=== PATIENT | female | born 1965 | race African-American/Black ===

== ENCOUNTER 2023-03-03 14:28 | Emergency (ER) | payer OTHER ==
[2023-03-03] MEDS ORDERED: IBUPROFEN 800 MG TAB PO STA (15:43)
[2023-03-03] MEDS ORDERED: ACETAMINOPHEN TAB 500 MG TAB PO STA (15:43)
--- NOTE | 2023-03-03 15:46 | ED ---
Extremity Problem HPI - General Chief complaint: Extremity Injury, Upper Stated complaint: xray shoulder Time Seen by Provider: 03/03/23 15:18 Source: patient, RN notes reviewed, old records reviewed Mode of arrival: ambulatory Limitations: no limitations - History of Present Illness Initial comments: This is a 57-year-old female patient presents today for evaluation of left shoulder pain. Patient presents for cigarette of her left shoulder pain. Patient is 9-10 days out of left shoulder injury and today her to popping sound in her left shoulder joint. No other acute complaints full range of motion of shoulder no pain in the elbow or hand. Injury was traumatic is patient was dropped will getting picked up around again 10 days ago prior to admission to [facility]. No medical history takes no medications MD Complaint: extremity pain, extremity swelling, joint swelling, joint pain -: hour(s) (9) Location: left, upper extremity -: Yes arthralgia Radiation: proximal Severity scale (1-10): 4 Quality: stabbing Improves with: nothing Worsens with: nothing Associated Symptoms: denies other symptoms - Related Data Allergies Allergy/AdvReac Type Severity Reaction Status Date / Time amoxicillin Allergy Unknown Verified 03/03/23 14:57 metronidazole [From Flagyl] Allergy Unknown Verified 03/03/23 14:57 Review of Systems ROS Statement: Those systems with pertinent positive or pertinent negative responses have been documented in the HPI. ROS Other: All systems not noted in ROS Statement are negative. Past Medical History Past Medical History: No Reported History, Asthma, GERD/Reflux, Hypertension Additional Past Medical History / Comment(s): bone degeneration dx. History of Any Multi-Drug Resistant Organisms: None Reported Past Surgical History: Section, Orthopedic Surgery Past Psychological History: No Psychological Hx Reported Smoking Status: Current every day smoker Past Alcohol Use History: Heavy Past Drug Use History: None Reported General Exam Limitations: no limitations General appearance: alert, in no apparent distress Head exam: Present: atraumatic, normocephalic, normal inspection Eye exam: Present: normal appearance, PERRL, EOMI. Absent: scleral icterus, conjunctival injection, periorbital swelling ENT exam: Present: normal exam, mucous membranes moist Neck exam: Present: normal inspection. Absent: tenderness, meningismus, lymphadenopathy Respiratory exam: Present: normal lung sounds bilaterally. Absent: respiratory distress, wheezes, rales, rhonchi, stridor Cardiovascular Exam: Present: regular rate, normal rhythm, normal heart sounds. Absent: systolic murmur, diastolic murmur, rubs, gallop, clicks GI/Abdominal exam: Present: soft, normal bowel sounds. Absent: distended, tenderness, guarding, rebound, rigid Extremities exam: Present: normal inspection, normal capillary refill. Absent: full ROM (Does have pain with range of motion of left shoulder but is able to shoulder all range), tenderness, pedal edema, joint swelling, calf tenderness Back exam: Present: normal inspection Neurological exam: Present: alert, oriented X3, CN II-XII intact Psychiatric exam: Present: normal affect, normal mood Skin exam: Present: warm, dry, intact, normal color. Absent: rash Course Vital Signs 03/03/23 03/03/23 14:53 17:02 Temperature 98.1 F 97.6 F Pulse Rate 73 75 Respiratory 20 18 Rate Blood Pressure 141/82 132/83 O2 Sat by Pulse 97 97 Oximetry - Reevaluation(s) Reevaluation #1: 03/03/23 16:49 Medical record is reviewed Reevaluation #2: 03/03/23 16:49 Patient informed results questions answered Reevaluation #3: 03/03/23 16:50 Patient has no significant symptoms currently has full range of motion of left shoulder Reevaluation #4: 03/03/23 16:52 Was pt. sent in by a medical professional or institution? @ -no Did you speak to anyone other than the patient for history? @ -no Did you review nursing and triage notes? @ -agree Were old charts reviewed? @ -no Differential Diagnosis? @ -prior EKG interpreted by me (3pts min.)? @ -no X-rays interpreted by me (1pt min.)? @ -yes CT interpreted by me (1pt min.)? @ -no U/S interpreted by me (1pt. min.)? @ -no What testing was considered but not performed? (CT, X-rays, U/S, labs)? Why? @ -no What meds were considered but not given? Why? @ -no Did you discuss the management of the patient with other professionals? @ -no Did you reconcile home meds? @ -no Was smoking cessation discussed for >3mins.? @ -no Was critical care preformed (if so, how long)? @ -no Were there social determinants of health that impacted care today? How? (Homelessness, low income, unemployed, alcoholism, drug addiction, transportation, low edu. Level, literacy, decrease access to med. care, residential, rehab)? @ -no Was there de-escalation of care discussed even if they declined? (Discuss DNR or withdrawal of care, Hospice)? @ -no What co-morbidities impacted this encounter? (DM, HTN, Smoking, COPD, CAD, Cancer, CVA, Hep., AIDS, mental health diagnosis, sleep apnea, morbid obesity)? @ -none Was patient admitted / discharged? @ -57 female DF for left shoulder pain strain for about a week no improving symptoms, worse when she moves it. No acute findings here in the ER patient can be discharged home Discharge Undiagnosed new problem with uncertain prognosis? @ -no Drug Therapy requiring intensive monitoring for toxicity (Heparin, Nitro, Insulin, Cardizem)? @ -no Were any procedures done? @ -no Diagnosis/symptom? @ -Left shoulder strain Acute, or Chronic, or Acute on Chronic? @ -no Uncomplicated (without systemic symptoms) or Complicated (systemic symptoms)? @ -uncomplicated Side effects of treatment? @ -no Exacerbation, Progression, or Severe Exacerbation] @ -no Poses a threat to life or bodily function? @ -no Medical Decision Making - Medical Decision Making 57 female who presents the emergency department today for evaluation of left shoulder pain strain occurred 9-10 days ago. Patient does note deformity to left arm significant for left shoulder strain and sprain of the before meals joint, x-rays normal no fracture patient can be discharged home - Radiology Data Radiology results: report reviewed (X-ray left shoulder is negative for acute disease), image reviewed Disposition Clinical Impression: Strain of shoulder, Left shoulder strain, Sprain of left shoulder Disposition: HOME SELF-CARE Condition: Good Instructions (If sedation given, give patient instructions): Shoulder Sprain (ED) Is patient prescribed a controlled substance at d/c from ED?: No Referrals: None,Stated [Primary Care Provider] - 1-2 days Time of Disposition: 16:25
--- NOTE | 2023-03-03 16:23 | XR ---
EXAMINATION TYPE: XR shoulder complete LT DATE OF EXAM: 03/03/2023 CLINICAL HISTORY: Pain. TECHNIQUE: Three views of the left shoulder are obtained. COMPARISON: None. FINDINGS: There is no acute fracture/dislocation evident in the left shoulder. The acromioclavicula r and glenohumeral joint spaces appear within normal limits. The visualized ribs are intact and unre markable. IMPRESSION: Unremarkable study.
[2023-03-03 17:04] VITALS: BP 132/83; PULSE 75; RESP 18; TEMP 97.6
== END 2023-03-03 17:05 | disposition home or self-care (01) ==
LOC: EC 14:28
DX: S46.912A Strain of unspecified muscle, fascia and tendon at shoulder and upper arm level, left arm, initial encounter (principal); I10 Essential (primary) hypertension; J45.909 Unspecified asthma, uncomplicated; F17.200 Nicotine dependence, unspecified, uncomplicated; Z88.0 Allergy status to penicillin; Z88.1 Allergy status to other antibiotic agents; X58.XXXA Exposure to other specified factors, initial encounter
CPT/HCPCS: 99283